=== PATIENT | female | born 1990 | race Caucasian/White ===

== ENCOUNTER → 2017-06-23 11:34 | Outpatient (CLI) | payer BC, SELFPAY ==
[2017-06-23 14:09] LABS: Color, Urine Yellow (Yellow); Glucose, Dipstick Normal (Normal); Ketone-Dipstick Negative (Negative); Leukocyte Esterase-Dipstick 25 /ul (Negative); Nitrite-Dipstick Negative (Negative); Occult Blood-Urine Negative /ul (Negative); Protein-Dipstick Negative (Negative); Urine Bilirubin Dipstick Negative (Negative); Urine Clarity Clear (Clear); Urine Urobilinogen Normal (Normal)
[2017-06-23 14:16] LABS: Absolute Lymphocyte Count 1.86 X10^3/ul (0.83-4.51); Absolute Neutrophil Count 7.2 X10^3/uL (2.0-7.7); Basophil# 0.02 X10^3/uL; Basophil% 0.2 % (0-1); Eosinophil# 0.22 X10^3/uL; Eosinophils% 2.3 % (0-5); Hematocrit 39.1 % (37-47); Hemoglobin 13.6 g/dl (12.0-15.0); Lymphocyte # 1.86 X10^3/ul (4.0); Lymphocyte % 19.1 % (19-41); Mean Corp Hgb Conc 34.8 g/gl (32-36); Mean Corpuscular Hgb 30.4 pg (27.0-32.0); Mean Corpuscular Volume 87.5 fL (81-99); Monocyte# 0.42 X10^3/uL; Monocyte% 4.3 % (0-10); Neutrophil # 7.19 X10^3/uL (2.7-7.7); Neutrophil % 73.7 % (47-70); Platelet Count 209 K/mm3 (150-450); RBC Distribution Width CV 13.4 % (11.6-14.6); RBC Distribution Width SD 40.7 fl (35.1-43.9); Red Blood Count 4.47 M/mm3 (4.2-5.4); White Blood Count 9.8 K/mm3 (4.4-11.0)
[2017-06-23 14:19] LABS: Amphetamine Urine VISTA NEGATIVE (<1000 ng/mL); Barbiturate Urine VISTA NEGATIVE (< 200 ng/mL); Benzodiazepine Urine VISTA NEGATIVE (< 200 ng/mL); Cocaine Urine VISTA NEGATIVE (< 300 ng/mL); Ecstacy Urine VISTA NEGATIVE (< 500 ng/mL); Methadone Urine VISTA NEGATIVE (< 300 ng/mL); PCP Urine VISTA NEGATIVE (< 25 ng/mL); THC Urine VISTA NEGATIVE (< 50 ng/mL); Vista UDS pH Range 7
[2017-06-23 14:22] LABS: POSITIVE COUNT NO; POSITIVE DIFFERENTIAL NO; POSITIVE MORPHOLOGY NO
[2017-06-23 14:33] LABS: Thyroid Stim Hormone (TSH) 1.55 uIU/mL (0.358-3.74)
[2017-06-23 15:11] LABS: HIV - WCH Non-Reactive (Nonreactive); Rubella IgG 88.1 IU/mL
[2017-06-24 09:01] LABS: HEPATITIS B SURFACE AG Negative (Negative); Hep C Antibodies <0.1 s/co ratio (0.0-0.9)
[2017-06-30 03:48] LABS: Prenatal RPR NONREACTIVE (NONREACTIVE)
== END ==
PROVIDERS: Visit Provider Obstetrics & Gynecology
DX: Z34.82 Encounter for supervision of other normal pregnancy, second trimester (principal)
CPT/HCPCS: 36415; 80307; 81002; 84443; 85025; 86703; 86762; 86803; 87340

== ENCOUNTER → 2017-09-01 10:21 | Outpatient (CLI) | payer BC, SELFPAY ==
[2017-09-01 11:49] LABS: Hematocrit 34.8 % (37-47); Hemoglobin 11.8 g/dl (12.0-15.0); Mean Corp Hgb Conc 33.9 g/gl (32-36); Mean Corpuscular Hgb 30.8 pg (27.0-32.0); Mean Corpuscular Volume 90.9 fL (81-99); Mean Platelet Vol. 11.2 fl (6.2-12.0); Platelet Count 203 K/mm3 (150-450); RBC Distribution Width SD 42.3 fl (35.1-43.9); Red Blood Count 3.83 M/mm3 (4.2-5.4); Scan Indicated on CBC? Y/N NO; White Blood Count 11.1 K/mm3 (4.4-11.0)
[2017-09-01 11:50] LABS: Glucose Challenge Gest 1H 50g 75 mg/dL (70-140)
== END ==
PROVIDERS: Visit Provider Obstetrics & Gynecology
DX: Z34.82 Encounter for supervision of other normal pregnancy, second trimester (principal)
CPT/HCPCS: 36415; 82950; 85027

== ENCOUNTER → 2017-10-27 11:15 | Outpatient (CLI) | payer BC, SELFPAY ==
--- NOTE | 2017-10-27 11:15 | DT_ITS ---
This patient was seen during an EMR downtime October 23, 2017 - October 30, 2017. This patient may have a combination of paper and electronic documentation or all paper documentation. All documentation is viewable within the e-chart portion of [employer] for each patient visit.
[2017-10-31 12:48] LABS: Group B Strep DNA By PCR Negative (Negative); Internal Control PASS; Probe Check PASS; Specimen Processing Control PASS
== END ==
PROVIDERS: Visit Provider Obstetrics & Gynecology
DX: Z36.85 Encounter for antenatal screening for Streptococcus B (principal)
CPT/HCPCS: 87081; 87653

== ENCOUNTER 2017-12-01 19:00 | Inpatient (IN) | payer BC, SELFPAY ==
[2017-12-01 19:31] VITALS: BMI 26.6
[2017-12-01] MEDS: Lactated Ringers 1,000 ML 50 ML IV (20:00)
[2017-12-01 20:35] LABS: Hematocrit 33.4 % (37-47); Hemoglobin 11.2 g/dl (12.0-15.0); Mean Corp Hgb Conc 33.5 g/gl (32-36); Mean Corpuscular Hgb 29.5 pg (27.0-32.0); Mean Corpuscular Volume 87.9 fL (81-99); Mean Platelet Vol. 11.6 fl (6.2-12.0); Platelet Count 194 K/mm3 (150-450); RBC Distribution Width CV 13.5 % (11.6-14.6); RBC Distribution Width SD 43.3 fl (35.1-43.9); White Blood Count 11.9 K/mm3 (4.4-11.0)
[2017-12-01 20:37] LABS: Scan Indicated on CBC? Y/N NO
[2017-12-01] MEDS: miSOPROStol 25 MCG TABLET PO (20:48)
[2017-12-01] MEDS: 0.9% Saline Lock 10 ML Syringe IV (20:49)
[2017-12-02] MEDS: miSOPROStol 25 MCG TABLET PO (01:23)
[2017-12-02] MEDS: Lactated Ringers 1,000 ML 50 ML IV ×3 (03:40→14:00)
--- NOTE | 2017-12-02 06:21 | PCM.PN.BLA ---
Progress Note Induction of labor 40 6/7 wk EGA Feeling some UCs, but not painful A little hungry. Neg VB. Neg ROM AVSS EFM 120-130s with avg variability Accels. Occasional ? late UCs approx q 3-4-6 min at times. Still irregular CX: FT/50/high. A/P: 40 6/7 wk induction. S/P cytotec doses. Cervix remains unfavorable Stop cytotec. May have regular breakfast. Begin pitocin per protocol, AROM as able.
[2017-12-02] MEDS: Oxytocin 30 units/NS 500 ml 30 UNITS/500 ML IV.SOLN IV (06:32)
--- NOTE | 2017-12-02 11:21 | PCM.PN.BLA ---
Progress Note LABOR PROGRESS NOTE. Induction 40 6/7 wk Feeling more uncomfortable w/ UCs Pitocin at 8 mIU/min EFM 110-120s avg variability accels. Occasional late, resolved with position changes. Category I tracing UCs q 2-4 mins CX; tight 3/mod firm/ very high midposition AROM: mod meconium noted , mod amount of fluid A/P: 40 6/7 wk induction postdates. Meconium stained fluid noted. Requesting epidural now. Epidural placement per pt request. Continue induction Advised peds to be present at delivery.
[2017-12-02] MEDS: fentaNYL-bupivacaine (epidural) 100 ML BAG EPIDURAL (11:58)
--- NOTE | 2017-12-02 13:48 | PCM.PN.BLA ---
Progress Note LABOR PROGRESS NOTE Induction 40 6/7 wk Sleeping after epidural. wakes to voice AVSS Pitocin induction UCs q 2-5 min, with some coupling and spacing. EFM 120-130s avg variability with accels. Category I tracing. Early decels, some variables, occasional late. CX: per last RN check with Cifuentes insertion A/P: 40 6/7 wk Induction postdates. Meconium stained fluid. Position changes to facilitate rotation and descent. Category I tracing Continue labor. Anticipate
[2017-12-02] MEDS: Acetaminophen 325 MG Tablet PO (15:14)
[2017-12-02] MEDS: Oxytocin 30 units/NS 500 ml 30 UNITS/500 ML IV.SOLN 334 UNITS IV (15:38)
--- NOTE | 2017-12-02 15:42 | PCM.OB.VAG ---
Vaginal Delivery Maternal Presentation: Medically Indicated Induction 40 5/7 wk induction of labor, unfavorable cervix Method of Induction: Pitocin, Amniotomy, Cytotec Medical Reason for Induction: Post term Amniotic Membrane Rupture Type: Artificial Amniotic Fluid Description: Moderate meconium Final RAMON: 11/26/17 Final RAMON Source: [place] <20 weeks Gestational age: 40 Weeks and 6 Days doctor who attended delivery (if requested by OB): Daja Foote Date of Procedure: 12/02/17 Pre-Operative Diagnosis: 40 5/7 wk induction Post-Operative Diagnosis: 40 6/7 wk induction Surgery/ Procedure Performed: Spontaneous Vaginal Delivery Anesthesiologist: Marysol Carlton Type of Anesthesia: Epidural Description of Procedure: of a westfall viable male over intact perineum. Head delivered NOEMI. OP and nares bulb suctioned of meconium. Nuchal cord x one reduced. Shoulders delivered easily. Baby began to cry, grimace. Bulb suctioned again. Cord clamped x two and cut. Then infant began to cry vigorously. Infant to maternal abdomen. Dr. Foote present for delivery 2/2 meconium stained fluid at amniotomy. End stage mec noted at delivery also. PP exam; no lacerations Placenta delivered by expression, expulsion. 3V cord, normal appearing with mec staining noted. EBL 250 cc Pt and infant tolerated delivery well. to recovery , stable condition. Ray Luis counts correct x two. Presentation: NOEMI Placental Delivery Description: Spontaneous, Expressed Placenta Disposition: [facility] Cord Vessel Description: 3 Vessels Nuchal Cord Compression: Without compression Cord Entanglement: Around neck x 1, loose Drain: Cifuentes to straight drain Estimated Blood Loss: 250 Infant A gender: Male (1 minute): 8 (5 minute): 9 Episiotomy Description: None Laceration: None Medications given after delivery: IV Pitocin Complications: None
--- NOTE | 2017-12-02 15:47 | PCM.DCVAG ---
Discharge Diet: No Restrictions Discharge Activity: May Shower, May Take a Tub Bath May resume sexual activity in: 4-6 weeks Additional Activity Instructions:: Nothing in the vagina for 4-6 weeks. You may return to work/school in 6 weeks. Additional Instructions: If you experience any of the following, contact your healthcare provider. Bleeding that soaks a pad every hour for 2 hours Fever 100.4 or higher Unrelieved abdominal pain Problems urinating (including inability to urinate or burning while urinating). Visual changes Severe headache Flu-like symptoms Pain or redness in one of both of your breasts Pain, warmth, tenderness or swelling in your legs, especially the calf area Frequent nausea and vomiting Symptoms of depression or anxiety If you experience any of the following, call 911 or go to the nearest Emergency Room. Chest pain Problems breathing Seizure activity Partial or complete paralysis of a body part, slurred speech, weakness or drooping of the face, or a sudden inability to walk or hold your balance Allergies/Adverse Reactions: Allergies acetaminophen [From Percocet] Adverse Reaction (Verified 12/01/17 19:32) Vomiting oxycodone [From Percocet] Adverse Reaction (Verified 12/01/17 19:32) Vomiting Medications to take at Discharge Vits [Prenatabs FA] 1 tablet PO DAILY 12/01/17 Please Follow Up With: Rosalee Roberts MD - [phone] When: Call to make an appointment with your doctor in 6 weeks. Primary Care Physician: Care Physician,No Primary [Primary Care Provider] - Test Results: Test results from this visit will be discussed in further detail at your follow-up appointment, if applicable. Proposed Discharge Date: 12/04/17
--- NOTE | 2017-12-02 15:49 | DCINST_ITS ---
Discharge Diet: No Restrictions Discharge Activity: May Shower, May Take a Tub Bath May resume sexual activity in: 4-6 weeks Additional Activity Instructions:: Nothing in the vagina for 4-6 weeks. You may return to work/school in 6 weeks. Additional Instructions: If you experience any of the following, contact your healthcare provider. * Bleeding that soaks a pad every hour for 2 hours * Fever 100.4 or higher * Unrelieved abdominal pain * Problems urinating (including inability to urinate or burning while urinating) . * Visual changes * Severe headache * Flu-like symptoms * Pain or redness in one of both of your breasts * Pain, warmth, tenderness or swelling in your legs, especially the calf area * Frequent nausea and vomiting * Symptoms of depression or anxiety If you experience any of the following, call 911 or go to the nearest Emergency Room. * Chest pain * Problems breathing * Seizure activity * Partial or complete paralysis of a body part, slurred speech, weakness or drooping of the face, or a sudden inability to walk or hold your balance Allergies/Adverse Reactions: Allergies acetaminophen [From Percocet] Adverse Reaction (Verified 12/01/17 19:32) Vomiting oxycodone [From Percocet] Adverse Reaction (Verified 12/01/17 19:32) Vomiting Medications to take at Discharge Vits [Prenatabs FA] 1 tablet PO DAILY 12/01/17 Please Follow Up With: Rosalee Roberts MD - [phone] When: Call to make an appointment with your doctor in 6 weeks. Primary Care Physician: Care Physician,No Primary [Primary Care Provider] - Test Results: Test results from this visit will be discussed in further detail at your follow- up appointment, if applicable. Proposed Discharge Date: 12/04/17
[2017-12-02] MEDS: Oxytocin 30 units/NS 500 ml 30 UNITS/500 ML IV.SOLN 167 UNITS IV (16:09)
[2017-12-02] MEDS: 0.9% Saline Lock 10 ML Syringe IV (17:15)
[2017-12-02 17:30] VITALS: BP 108/57; PULSE 80; RESP 18; TEMP 36.3
[2017-12-02 19:34] VITALS: BP 115/48; PULSE 77; RESP 16; TEMP 36.7
[2017-12-02] MEDS: Ibuprofen 600 MG Tablet PO (20:34)
[2017-12-03] VITALS: BP 105/45; PULSE 68; RESP 16; TEMP 36.3
[2017-12-03 04:15] VITALS: BP 96/43; PULSE 66; RESP 16; TEMP 37.1
--- NOTE | 2017-12-03 07:30 | PCM.PN.OB ---
Subjective: PPD#1 Doing well. Pain control adequate. Wants to go home today if baby is released. Nursing well. plans circumcision. Objective: Lying in bed, holding sleeping baby. - Physical Exam General: Alert, Oriented x3, Cooperative, No apparent distress HEENT: Atraumatic Neck: Supple Abdomen: Soft - Fundus firm NT at 1-2 cm inferior to umbilicus Neurological: Cranial nerves II-XII grossly intact Psych/Mental Status: Normal Affect Vital Signs Temp Pulse Resp BP 98.8 F 66 16 96/43 L 12/03/17 04:15 12/03/17 04:15 12/03/17 04:15 12/03/17 04:15 Oxygen Delivery Method Room Air Weight: 70.5 kg Body Mass Index (BMI) 26.6 Intake and Output for Last 24 Hours 12/01/17 12/02/17 12/03/17 23:59 23:59 23:59 Intake Total 2432 / 2432 Output Total 5050 / 5050 Balance -2618 / -2618 Medical Necessity - Tobacco Use Smoking Status: Never smoker Assessment/Plan PPD #1 Doing well. D/c home today if baby is released. RTO in 6 wk for pp check , prn sooner.
[2017-12-03 10:00] VITALS: BP 102/60; PULSE 76; RESP 16; TEMP 36.4
[2017-12-03] MEDS: Ibuprofen 600 MG Tablet PO (12:49)
[2017-12-03 14:00] VITALS: BP 103/55; PULSE 77; RESP 18; TEMP 36.6
--- NOTE | 2017-12-03 18:49 | NURSING ---
1800 Discharged to home via wheelchair to car with in lap in carseat. States she wants to go home and feels capable of caring for herself, baby and other children.
== END 2017-12-03 18:00 | disposition home or self-care (01) | DRG 775 ==
PROVIDERS: Admitting Provider Obstetrics & Gynecology; Visit Provider Obstetrics & Gynecology
DX: O48.0 Post-term pregnancy (principal); Z37.0 Single live birth; Z3A.40 40 weeks gestation of pregnancy; O77.0 Labor and delivery complicated by meconium in amniotic fluid; O69.81X0 Labor and delivery complicated by cord around neck, without compression, not applicable or unspecified
CPT/HCPCS: 59025; 59050; 85027; 86850; 86900; 99218; J7120; A4216; G0378

== ENCOUNTER → 2020-05-29 | Outpatient (CLI) | payer BC, SELFPAY ==
[2020-06-03 13:55] LABS: HPV APTIMA, High Risk Negative (Negative)
== END | disposition home or self-care (01) ==
LOC: LABSPEC 11:30
PROVIDERS: Visit Provider Obstetrics & Gynecology
DX: Z12.4 Encounter for screening for malignant neoplasm of cervix (principal)
CPT/HCPCS: 87624; 88175; G0145